=== PATIENT | female | born 1970 | race Two or more races ===

== ENCOUNTER 2016-12-24 15:15 | Emergency (ER) | payer MEDICAID ==
[~2016-12-24] VITALS: Ht 170.2 cm; Wt 86.2 kg
[2016-12-24] MEDS ORDERED: PROPRANOLOL HCL20 MG ORAL (15:20)
[2016-12-24] MEDS ORDERED: NEURONTIN100 MG ORAL (15:21)
[2016-12-24 15:51] VITALS: BP 128/87
[2016-12-24 16:06] VITALS: BP 128/87
--- NOTE | 2016-12-24 22:02 | Emergency Room Report ---
History of Present Illness General Chief Complaint: General Complaint Source: Patient, Family Member, Friend, EMS Present Illness HPI Patient was brought in by paramedics for reports of fall Patient reports that she has knee problems in the uses a walker The walker/cane caused her to trip And the patient fell backwards Sustained a low back injury Upon arrival the patient is adamantly refusing any medical care She is refusing any further evaluation She reports that she has chronic pain and chronic injuries And would like to go home so she can sleep Patient continues to walk towards the exit with a crutch I felt the patient outside And pleaded with her to please come inside and have his seat while we try to find out more information Patient continues to state that she wants to call a taxi thankfully a friend/ family presented patient was asking her to drive her home We tried several attempts to have the patient at the minimum have a seat so it can have further conversation Patient is awake patient is alert And continues to have disregard, and refusing any further input Allergies: Coded Allergies: PENICILLINS (Verified Allergy, Unknown, 12/24/16) Patient History Limited by: medical condition Past Medical History: see triage record Pertinent Family History: none Reviewed Nursing Documentation: PMH: Agreed, PSxH: Agreed Nursing Documentation-PMH Past Medical History: No History, Except For Hx Hypertension: Yes Hx Diabetes: Yes History Of Psychiatric Problem: Yes - ANXIETY Review of Systems All Other Systems: limited - Patient refuses to provide any further input Physical Exam Vital Signs Date Time Temp Pulse Resp B/P Pulse Ox O2 Delivery O2 Flow Rate FiO2 12/24/16 15:14 98.1 75 20 128/87 99 Room Air Sp02 EP Interpretation: reviewed, normal General Appearance: well appearing, no apparent distress Head: normocephalic, atraumatic Medical Decision Making Diagnostic Impression: Primary Impression: fall Additional Impressions: Refusal of care by patient AMA ER Course Speaking Farsi with the patient I attempted several times to plead with the patient Diarrhea shirt her that we would not perform any further exams, or do any further workup and simply wanted her to be able to sit and calm herself However the patient is ambulatory continues to resist any further assistance And left our emergency department AGAINST MEDICAL ADVICE, Last Vital Signs Date Time Temp Pulse Resp B/P Pulse Ox O2 Delivery O2 Flow Rate FiO2 12/24/16 16:06 98.1 67 20 128/87 99 Room Air Status: unchanged Disposition: AGAINST MEDICAL ADVICE Condition: Unknown Referrals: LORENZA GARCIA,REFERRING (PCP) HARI MUELLER D.O. Dec 24, 2016 22:02
== END 2016-12-24 16:06 | disposition left against medical advice (07) ==
LOC: EDBD 15:15 → EMR 15:40
DX: W19.XXXA Unspecified fall, initial encounter (principal); Y93.9 Activity, unspecified; Y92.9 Unspecified place or not applicable; I10 Essential (primary) hypertension; E11.9 Type 2 diabetes mellitus without complications; Z86.59 Personal history of other mental and behavioral disorders; Z53.29 Procedure and treatment not carried out because of patient's decision for other reasons
CPT/HCPCS: 99281